=== PATIENT | female | born 1995 | race Caucasian/White ===

== ENCOUNTER → 2016-10-18 | Outpatient (REF) | payer OTHER | LOC: M LAB REF 18:57 | PROVIDERS: ATTEND Physician Assistant | DX: N39.0 Urinary tract infection, site not specified (principal) ==

== ENCOUNTER → 2017-06-14 | Outpatient (REF) | payer OTHER | LOC: M SFHCCLAY 14:27 | PROVIDERS: ATTEND Family Medicine | DX: J02.9 Acute pharyngitis, unspecified (principal) ==

== ENCOUNTER → 2017-09-20 | Outpatient (CLI) | payer BC ==
--- NOTE | 2017-09-21 06:27 | REP ---
RIGHT FOOT: CLINICAL: Pain with prior trauma. TECHNIQUE: AP, lateral, bilateral oblique views of the right foot. FINDINGS: Osseous structures, joint spaces and surrounding soft tissues are normal. No obvious acute or healed fracture or dislocation. No subcutaneous emphysema or abnormal foreign body. IMPRESSION: Normal right foot radiograph series.
== END ==
LOC: M CLY 09:36
PROVIDERS: ATTEND Family Medicine
DX: M79.671 Pain in right foot (principal)

== ENCOUNTER → 2018-09-25 | Outpatient (REF) | payer OTHER | LOC: M SFHCCLAY 09-26 11:24 | DX: R30.0 Dysuria (principal) ==

== ENCOUNTER → 2022-11-27 | Outpatient (REF) | payer OTHER | LOC: M WUC 18:33 | PROVIDERS: ATTEND Physician Assistant | DX: J02.9 Acute pharyngitis, unspecified (principal) ==

== ENCOUNTER → 2024-11-25 | Outpatient (CLI) | payer OTHER ==
[2024-11-25 13:57] LABS: HEMATOCRIT 40.2 % (36.0-47.0); MEAN CORPUSCULAR HEMOGLOBIN 30.8 pg (27.0-33.0); MEAN CORPUSCULAR HGB CONC 34.8 g/dl (32.0-36.5); MEAN CORPUSCULAR VOLUME 88.5 fl (80.0-96.0); PLATELET COUNT, AUTOMATED 225 10^3/uL (150-450); RED BLOOD COUNT 4.54 10^6/uL (4.00-5.40); WHITE BLOOD COUNT 7.5 10^3/uL (4.0-10.0)
[2024-11-25 15:06] LABS: HIV 1&2 SCREEN NEGATIVE (NEGATIVE)
[2024-11-25 15:18] LABS: Trichomonas vaginalis (AMP) NOT DETECTED (NEGATIVE)
[2024-11-25 15:41] LABS: GC DNA AMPLIFICATION NEGATIVE (NEGATIVE)
== END ==
LOC: M PLALAB 11:39
PROVIDERS: ATTEND Nurse Practitioner Family
DX: Z34.80 Encounter for supervision of other normal pregnancy, unspecified trimester (principal)

== ENCOUNTER → 2025-01-24 | Outpatient (CLI) | payer BC, MEDICAID | LOC: M WHC 09:54 | PROVIDERS: ATTEND Obstetrics & Gynecology | DX: Z34.02 Encounter for supervision of normal first pregnancy, second trimester (principal) ==

== ENCOUNTER → 2025-05-21 | Outpatient (REF) | payer OTHER, MEDICAID | LOC: M SFHCWAGY 13:05 | PROVIDERS: ATTEND Obstetrics & Gynecology | DX: Z34.03 Encounter for supervision of normal first pregnancy, third trimester (principal) ==

== ENCOUNTER 2025-06-07 17:23 | Inpatient (IN) | payer MEDICAID, OTHER ==
[2025-06-07] VITALS (19 sets, daily range): BP systolic 97–126; BP diastolic 50–96
[~2025-06-07] VITALS: Ht 160 cm; Wt 82.7 kg
[2025-06-07] MEDS ORDERED: PRENTAB9 PO (17:54)
[2025-06-07] MEDS ORDERED: LR 1,000 ML IV SCH (19:35)
[2025-06-07] MEDS: LACTATED RINGER'S 1000 ML IV STA (19:35)
[2025-06-07] MEDS: PENICILLIN G POTASSIUM 5 MU IV 5 MU in DEXTROSE 5% (D5W) MINI-BAG PLU 100 ML IV STA (19:49)
[2025-06-07 19:51] LABS: BASO # 0.0 10^3/uL (0.0-0.2); BASO % 0.3 % (0.0-1.0); EOS # 0.0 10^3/uL (0.0-0.5); EOS % 0.1 % (0.0-3.0); LYMPH # 1.8 10^3/uL (1.5-5.0); LYMPH % 13.3 % (24.0-44.0); MONO # 0.8 10^3/uL (0.0-0.8); MONO % 6.0 % (2.0-8.0); NEUTROPHILS # 11.0 10^3/uL (1.5-8.5); NEUTROPHILS % 79.7 % (36.0-66.0); PLATELET COUNT, AUTOMATED 191 10^3/uL (150-450)
[2025-06-07] MEDS ORDERED: TRANEXAMIC ACID INJection 1,000 MG in NS 100 ML IV PRN (20:15)
[2025-06-07] MEDS ORDERED: LIDOCAINE 1% MDV 20 ML VIAL INFIL PRN (20:15)
[2025-06-07] MEDS ORDERED: CARBOPROST TROMETHAMINE 250 MCG/ML AMP IM PRN (20:15)
[2025-06-07] MEDS ORDERED: METHYLERGONOVINE MALEATE 0.2 MG/ML 1 ML VIAL IM PRN (20:15)
[2025-06-07] MEDS ORDERED: LR 500 ML IV PRN (20:20)
[2025-06-07] MEDS ORDERED: NALOXONE INJ 0.4 MG/1 ML VIAL IV PRN (20:20)
[2025-06-07] MEDS ORDERED: diphenhydrAMINE 50 MG/ML VIAL IV PRN (20:20)
[2025-06-07] MEDS ORDERED: EPIDURAL/PCA KEYS XX PRN (20:20)
[2025-06-07] MEDS: FENTANYL/ROPIVACAINE/NACL BAG 100 ML EPIDURAL SCH (20:24)
[2025-06-07 21:03] LABS: HEPATITIS C VIRUS ABY INDEX 0.06 INDEX (<0.8)
[2025-06-07] MEDS: OXYTOCIN DRIP 30 UNITS in IV 1 EA IV PRN (21:29)
[2025-06-08] VITALS (39 sets, daily range): BP systolic 98–168; BP diastolic 58–90; O2SAT 98
[2025-06-08] MEDS: PEN G POT 3,000,000 UNIT/50 ML 3,000,000 UNIT in IV 1 EA IV SCH (04:04)
[2025-06-08] MEDS: ONDANSETRON 4MG 2ML VIAL IV PRN (04:12)
[2025-06-08] MEDS: LR 1,000 ML IV SCH (08:29)
[2025-06-08] MEDS: OXYTOCIN DRIP 30 UNITS in IV 1 EA IV SCH ×2 (09:28→18:59)
[2025-06-08] MEDS ORDERED: OXYTOCIN DRIP 30 UNITS in IV 1 EA IV PRN (18:45)
[2025-06-08] MEDS ORDERED: RHOGAM 300MCG (1500IU) INJ IM SCH (18:55)
[2025-06-08] MEDS ORDERED: LR 1,000 ML IV SCH (18:55)
[2025-06-08] MEDS ORDERED: ANUSOL HC CREAM 30 GM TOP PRN (18:55)
[2025-06-08] MEDS ORDERED: METHYLERGONOVINE MALEATE 0.2 MG TAB PO PRN (18:55)
[2025-06-08] MEDS ORDERED: DIBUCAINE 1% OINTMENT 30 GM TOP PRN (18:55)
[2025-06-08] MEDS ORDERED: CALCIUM CARBONATE 500 MG CHEW U/D PO PRN (18:55)
[2025-06-08] MEDS ORDERED: IBUPROFEN 600 MG TAB PO PRN (18:55)
[2025-06-08] MEDS ORDERED: ACETAMINOPHEN 325 MG TAB PO PRN (18:55)
[2025-06-08] MEDS ORDERED: ONDANSETRON 4MG 2ML VIAL IV PRN (18:55)
[2025-06-08] MEDS: ACETAMINOPHEN 500 MG TAB PO PRN (19:34)
[2025-06-08] MEDS: IBUPROFEN 800 MG TAB PO PRN (23:26)
[2025-06-09 06:00] VITALS: BP 99/60; O2SAT 98
[2025-06-09] MEDS: DOCUSATE SODIUM 100 MG CAPSULE PO PRN (09:34)
[2025-06-09] MEDS: PRENATAL VITAMINS CHEWABLE TABLET PO SCH (09:35)
[2025-06-09 17:51] VITALS: BP 108/70; O2SAT 99
[2025-06-10 06:07] VITALS: BP 124/78; O2SAT 100
[2025-06-10] MEDS: MEASLES,MUMPS,RUBELLA VACCINE INJ (MMR-II) SC.IMMUN ONE (08:46)
[2025-06-10] MEDS ORDERED: HOME MED LIST COMPLETE! XX SCH (09:00)
== END 2025-06-10 13:50 | disposition home or self-care (01) | DRG 540 ==
LOC: M LDO 17:23 → M LDI 19:20 → M OBS 06-08 20:33
PROVIDERS: ADMIT Obstetrics & Gynecology; ATTEND Obstetrics & Gynecology
PROC: 10D00Z1 Extraction of Products of Conception, Low, Open Approach (ICD-10-PCS; principal; 2025-06-08)
PROC: 0KQM0ZZ Repair Perineum Muscle, Open Approach (ICD-10-PCS; 2025-06-08)
DX: O70.1 Second degree perineal laceration during delivery (principal); Z37.0 Single live birth; Z3A.38 38 weeks gestation of pregnancy